=== PATIENT | female | born 1960 | race Caucasian/White ===

== ENCOUNTER → 2019-08-28 | Outpatient (CLI) | payer BC ==
[~2019-08-28] MED LIST: ADVIL100 M2 PO; ALLEGRA60 MG PO; B COMPLEX-VITA1 EACH PO; CELEXA 20 MG TA20 MG PO; ECHINACEA167 MG PO; FLONASE16 GM INH; THERA-M CAPLET1 EACH PO; VITAMIN D-32000 UNIT PO; XANAX 0.25 MG0.25 MG PO
== END ==
LOC: LAB 09:00
PROVIDERS: ATTEND Anesthesiology
DX: Z01.812 Encounter for preprocedural laboratory examination (principal); Z11.59 Encounter for screening for other viral diseases